=== PATIENT | female | born 1960 | race Hispanic/Latino ===

== ENCOUNTER 2019-05-30 11:08 | Inpatient (IN) | payer SELFPAY ==
[~2019-05-30] VITALS: Ht 154.9 cm; Wt 67.1 kg
[2019-05-30 11:58] LABS: BASOPHILS % (AUTO) 0.6 % (0.0-5.0); EOSINOPHILS % (AUTO) 4.9 % (0.0-8.0); LYMPHOCYTES % (AUTO) 26.6 % (21.0-51.0); MEAN CORPUSCULAR HEMOGLOBIN 30.7 pg (27.0-33.0); MEAN CORPUSCULAR HGB CONC 34.2 g/dL (32.0-36.0); MEAN CORPUSCULAR VOLUME 89.7 fL (79-99); MONOCYTES % (AUTO) 5.2 % (3.0-13.0); NEUTROPHILS % (AUTO) 62.7 % (40.0-77.0); NUCLEATED RED BLOOD CELLS 0.1 % (0.0-0.19); PLATELET COUNT (AUTO) 260 K/uL (130-400); RED BLOOD CELL COUNT(AUTO) 5.01 MIL/uL (4.00-5.50); RED CELL DISTRIBUTION WIDTH 13.2 % (11.0-15.5); WHITE BLOOD COUNT (AUTO) 7.3 K/uL (4.8-10.8)
[2019-05-30 12:12] LABS: CREATININE 0.9 mg/dL (0.5-1.5); POTASSIUM 3.9 mmol/L (3.5-5.1)
[2019-05-30] MEDS ORDERED: METOCLOPRAMIDE 10 MG/2 ML VIAL ONE (12:12)
[2019-05-30] MEDS ORDERED: DiphenhydrAMINE HCL 50 MG/ML VIAL ONE (12:13)
[2019-05-30] MEDS ORDERED: DEXAMETHASONE SOD PHOSPHATE 10MG/ML 1ML VIAL ONE (12:13)
[2019-05-30] MEDS ORDERED: KETOROLAC TROMETHAMINE 30MG/ML ONE (12:14)
[2019-05-30] MEDS ORDERED: SODIUM CHLORIDE 0.9% 1000ML 1,000 ML IV ONE (12:14)
[2019-05-30 12:24] LABS: ALBUMIN 3.5 g/dL (3.5-5.0); BILIRUBIN,TOTAL 0.4 mg/dL (0.2-1.0); MAGNESIUM 2.1 mg/dL (1.80-2.40); THYROID STIMULATING HORMONE 3.25 uIU/mL (0.36-3.74); TOTAL PROTEIN, SERUM 7.1 g/dL (6.0-8.3)
[2019-05-30 12:25] LABS: MAGNESIUM 2.1 mg/dL (1.80-2.40); THYROID STIMULATING HORMONE 3.32 uIU/mL (0.36-3.74)
[2019-05-30] MEDS ORDERED: ONDANSETRON HCL 4 MG/2 ML VIAL IVP PRN (17:45)
[2019-05-30] MEDS ORDERED: ACETAMINOPHEN 325 MG TAB PO PRN (17:45)
[2019-05-30] MEDS ORDERED: KETOROLAC TROMETHAMINE 15MG/ML IV PRN (19:45)
[2019-05-30] MEDS ORDERED: DEXAMETHASONE SOD PHOSPHATE 4 MG/ML 1ML VIAL ONE (20:42)
[2019-05-30] MEDS ORDERED: KETOROLAC TROMETHAMINE 15MG/ML ONE (20:42)
[2019-05-30 22:30] LABS: CREATINE KINASE, TOTAL 56 U/L (21-232); MYOGLOBIN 41 ng/mL (10-92); TROPONIN I < 0.04 ng/mL (0.00-0.06)
[2019-05-31 01:45] LABS: CREATINE KINASE, TOTAL 53 U/L (21-232); MYOGLOBIN 36 ng/mL (10-92); TROPONIN I < 0.04 ng/mL (0.00-0.06)
[2019-05-31] MEDS ORDERED: KETOROLAC TROMETHAMINE 30MG/ML ONE (04:24)
[2019-05-31] MEDS ORDERED: DEXAMETHASONE SOD PHOSPHATE 4 MG/ML 1ML VIAL ONE (08:07)
[2019-05-31 09:00] LABS: CREATINE KINASE, TOTAL 54 U/L (21-232); MYOGLOBIN 37 ng/mL (10-92); TROPONIN I < 0.04 ng/mL (0.00-0.06)
[2019-05-31] MEDS: ASPIRIN 325MG EC TAB 325 MG TABLET.DR PO SCH (09:00)
[2019-05-31] MEDS: DEXAMETHASONE SOD PHOSPHATE 4 MG/ML 1ML VIAL IVP SCH ×3 (09:00→21:25)
[2019-05-31] MEDS: CHLORIDE IV SCH ×2 (09:15→22:33)
[2019-05-31] MEDS ORDERED: COMPOUND IV MISC 1 EACH IVSOLN MISC PRN (09:15)
[2019-05-31] MEDS: SODIUM IV SCH ×2 (09:15→22:33)
[2019-05-31] MEDS: VALPROIC ACID IV SCH ×2 (09:15→22:33)
[2019-05-31] MEDS ORDERED: ASPIRIN 325MG EC TAB 325 MG TABLET.DR PO ONE (10:23)
[2019-05-31] MEDS ORDERED: BUTALB/ACETAMINOPHEN/CAFFEINE 1 EACH TABLET PO ONE (10:23)
[2019-05-31 10:46] VITALS: BP 107/69
[2019-05-31] MEDS ORDERED: LEVO100T12 PO (10:56)
[2019-05-31] MEDS ORDERED: TRAM100C3 PO (10:57)
[2019-05-31] MEDS: BUTALB/ACETAMINOPHEN/CAFFEINE 1 EACH TABLET PO PRN ×2 (11:58→20:01)
[2019-05-31 12:00] VITALS: BP 116/72
--- NOTE | 2019-05-31 12:40 | NUR ---
HOSPITALIST DELGADO JAMES, MATTHEW AT BEDSIDE TO ASSESS PATIENT AND DISCUSS POC WITH PATIENT. NEW ORDERS RECEIVED AND WILL BE CARRIED OUT.
[2019-05-31] MEDS: MORPHINE SULFATE 2 MG/ML 1ML SYG IVP PRN (14:01)
[2019-05-31 14:49] LABS: CREATINE KINASE, TOTAL 54 U/L (21-232); MYOGLOBIN 32 ng/mL (10-92); TROPONIN I < 0.04 ng/mL (0.00-0.06)
--- NOTE | 2019-05-31 15:05 | NUR ---
HOSPITALIST CALLED HOSPITALIST CALLED TO DISCUSS ECG RESULTS AND LAB RESULTS. CEDRICK JAMES NP STATED SHE'D BE BY TO ASSESS PATIENT.
--- NOTE | 2019-05-31 16:15 | NUR ---
CARDIOLOGY CONSULT NOTIFIED ERNESTO RINCON WITH [facility] REGARDING CONSULT ORDERED. INFORMED OF EKG RESULTS AND CARDIAC ENZYMES. NO NEW ORDERS RECEIVED AT THIS TIME. STATED WILL BE BY TO SEE PATIENT.
[2019-05-31 16:29] VITALS: BP 113/72
--- NOTE | 2019-05-31 17:15 | NUR ---
GRINDING AND SPRAYING SUPERVISOR CONSULT DR. PRESCOTT AT BEDSIDE TO ASSESS PATIENT AND DISCUSS POC. LABS AND ECG REVIEWED. PATIENT CLEARED FROM CARDIOLOGY.
--- NOTE | 2019-05-31 17:45 | NUR ---
CASSIE DORSEY NP MADE AWARE OF DR. PRESCOTT ROUNDING ON PT. NO NEW ORDERS RECEIVED AT THIS TIME.
[2019-05-31 19:47] VITALS: BP 95/53
--- NOTE | 2019-05-31 20:00 | NUR ---
Patient received: Patient lying in bed when received, she claimed, " The medication they give me through the IV is not working I still have a headache a score of 7. Can I get another pain medication cause my head hurts so badly like a 7." Patient given reassurance that I can give her medication for pain. See EMAR medication given.
[2019-05-31 22:57] LABS: CREATINE KINASE, TOTAL 42 U/L (21-232); MYOGLOBIN 31 ng/mL (10-92); TROPONIN I < 0.04 ng/mL (0.00-0.06)
[2019-05-31 23:47] VITALS: BP 108/64
[2019-06-01 03:51] VITALS: BP 114/77
[2019-06-01 04:37] LABS: BASOPHILS % (AUTO) 0.1 % (0.0-5.0); HEMATOCRIT 38.7 % (36-48); LYMPHOCYTES % (AUTO) 5.9 % (21.0-51.0); MEAN CORPUSCULAR HEMOGLOBIN 30.6 pg (27.0-33.0); MEAN CORPUSCULAR HGB CONC 34.4 g/dL (32.0-36.0); MEAN CORPUSCULAR VOLUME 89.1 fL (79-99); MONOCYTES % (AUTO) 1.3 % (3.0-13.0); NEUTROPHILS % (AUTO) 92.7 % (40.0-77.0); PLATELET COUNT (AUTO) 272 K/uL (130-400); RED BLOOD CELL COUNT(AUTO) 4.34 MIL/uL (4.00-5.50); RED CELL DISTRIBUTION WIDTH 13.2 % (11.0-15.5)
[2019-06-01] MEDS: MORPHINE SULFATE 2 MG/ML 1ML SYG IVP PRN ×2 (05:27→16:24)
[2019-06-01 07:32] VITALS: BP 104/63
[2019-06-01] MEDS: CHLORIDE IV SCH (09:17)
[2019-06-01] MEDS: SODIUM IV SCH (09:17)
[2019-06-01] MEDS: VALPROIC ACID IV SCH (09:17)
[2019-06-01] MEDS: DEXAMETHASONE SOD PHOSPHATE 4 MG/ML 1ML VIAL IVP SCH ×2 (09:17→16:09)
[2019-06-01] MEDS: ASPIRIN 325MG EC TAB 325 MG TABLET.DR PO SCH (09:17)
--- NOTE | 2019-06-01 09:50 | NUR ---
NEUROLOGIST ROUNDING DR. SOTO AT BEDSIDE TO ASSESS PATIENT. NEW ORDERS RECEIVED AND WILL BE CARRIED OUT. PATIENT INSTRUCTED TO FOLLOW UP IN 6-8 WEEKS AT NEUROLOGY CLINIC IF PATIENT WISHES TO DO SO.
[2019-06-01 11:58] VITALS: BP 120/74
[2019-06-01 16:14] VITALS: BP 100/66
--- NOTE | 2019-06-01 17:25 | NUR ---
CASSIE DORSEY NP INFORMED THAT PT IS PENDING TO HAVE HOSPITALIST ROUND ON HER. STATED CEDRICK JAMES NP WOULD BE BY THIS EVENING TO SEE PT.
[2019-06-01 19:30] VITALS: BP 103/71
--- NOTE | 2019-06-01 19:39 | NUR ---
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
[2019-06-01] MEDS ORDERED: DIVALPROEX SODIUM 250 MG TABLET.DR PO SCH (21:00)
[2019-06-02] MEDS ORDERED: DEXAMETHASONE SOD PHOSPHATE 4 MG/ML 1ML VIAL IVP SCH (09:00)
== END 2019-06-01 19:45 | disposition home or self-care (01) | DRG 123 ==
LOC: EDH 11:08 → OBSVTOIN 17:34 → EDHIP 17:34 → WSH 05-31 10:45
PROVIDERS: ADMIT Internal Medicine; ATTEND Internal Medicine
DX: G45.3 Amaurosis fugax (principal); R07.9 Chest pain, unspecified; E03.9 Hypothyroidism, unspecified; F41.9 Anxiety disorder, unspecified; Z90.710 Acquired absence of both cervix and uterus; Z87.891 Personal history of nicotine dependence
CPT/HCPCS: 36415; 70450; 70544; 70551; 80048; 80053; 82550; 83735; 83874; 84443; 84484; 85025; 93005; 93880; G0378; J1100; J1200; J1885; J2765; J7030

== ENCOUNTER 2019-10-17 17:19 | Emergency (ER) | payer OTHER ==
[~2019-10-17 17:19] MED LIST: LEVO100T12 PO; TRAM100C3 PO
[2019-10-17] MEDS ORDERED: ONDANSETRON HCL 4 MG/2 ML VIAL ONE (17:53)
[2019-10-17] MEDS ORDERED: SODIUM CHLORIDE 0.9% 1000ML 1,000 ML IV ONE (17:53)
[2019-10-17 18:02] LABS: BASOPHILS % (AUTO) 0.3 % (0.0-5.0); EOSINOPHILS % (AUTO) 0.2 % (0.0-8.0); HEMATOCRIT 45.8 % (36-48); LYMPHOCYTES % (AUTO) 3.8 % (21.0-51.0); MEAN CORPUSCULAR HEMOGLOBIN 29.4 pg (27.0-33.0); MEAN CORPUSCULAR HGB CONC 33.8 g/dL (32.0-36.0); MEAN CORPUSCULAR VOLUME 86.7 fL (79-99); MONOCYTES % (AUTO) 4.3 % (3.0-13.0); PLATELET COUNT (AUTO) 285 K/uL (130-400); RED BLOOD CELL COUNT(AUTO) 5.28 MIL/uL (4.00-5.50); RED CELL DISTRIBUTION WIDTH 12.2 % (11.0-15.5); WHITE BLOOD COUNT (AUTO) 19.1 K/uL (4.8-10.8)
[2019-10-17 18:27] LABS: CREATININE 1.3 mg/dL (0.5-1.5); POTASSIUM 3.6 mmol/L (3.5-5.1)
[2019-10-17 18:33] LABS: ALBUMIN 4.3 g/dL (3.5-5.0); BILIRUBIN,TOTAL 0.4 mg/dL (0.2-1.0); MAGNESIUM 2.1 mg/dL (1.80-2.40); TOTAL PROTEIN, SERUM 8.5 g/dL (6.0-8.3)
[2019-10-17] MEDS ORDERED: ACETAMINOPHEN EXTRA STRENGTH 500 MG TABLET ONE (19:28)
[2019-10-17 19:30] LABS: APPEARANCE,URINE Clear (CLEAR); BILIRUBIN,URINE Negative (NEGATIVE); COLOR,URINE Yellow (YELLOW); GLUCOSE, URINE (UA) Negative (NEGATIVE); KETONES,URINE 15 mg/dL (NEGATIVE); LEUKOCYTE ESTERASE ,URINE Negative (NEGATIVE); NITRATE,URINE Negative (NEGATIVE); OCCULT BLOOD,URINE Nonhemolyzed Trace (NEGATIVE); PROTEIN,URINE POS 1+ mg/dL (NEGATIVE)
[2019-10-17 19:40] LABS: BACTERIA,URINE Few /HPF (None Seen); MUCUS,URINE Many LPF (None Seen); SQUAMOUS EPITHELIAL CELL,UR 0-2 /HPF (0-2); WBC,URINE 0-1 /HPF (0-1)
== END 2019-10-17 19:53 | disposition home or self-care (01) ==
LOC: EDH 17:19
DX: T63.441A Toxic effect of venom of bees, accidental (unintentional), initial encounter (principal); R11.2 Nausea with vomiting, unspecified; Y92.098 Other place in other non-institutional residence as the place of occurrence of the external cause
CPT/HCPCS: 36415; 80053; 81001; 82550; 83735; 85025; 96361; 96374; 99283; J2405; J7030

== ENCOUNTER 2020-02-03 11:58 | Emergency (ER) | payer OTHER, SELFPAY ==
[2020-02-03 13:48] LABS: BASOPHILS % (AUTO) 0.9 % (0.0-5.0); EOSINOPHILS % (AUTO) 1.7 % (0.0-8.0); HEMATOCRIT 40.6 % (36-48); LYMPHOCYTES % (AUTO) 16.2 % (21.0-51.0); MEAN CORPUSCULAR HEMOGLOBIN 30.2 pg (27.0-33.0); MEAN CORPUSCULAR HGB CONC 34.2 g/dL (32.0-36.0); MEAN CORPUSCULAR VOLUME 88.1 fL (79-99); MONOCYTES % (AUTO) 11.3 % (3.0-13.0); NEUTROPHILS % (AUTO) 69.6 % (40.0-77.0); PLATELET COUNT (AUTO) 234 K/uL (130-400); RED BLOOD CELL COUNT(AUTO) 4.61 MIL/uL (4.00-5.50); RED CELL DISTRIBUTION WIDTH 12.7 % (11.0-15.5); WHITE BLOOD COUNT (AUTO) 5.8 K/uL (4.8-10.8)
[2020-02-03 13:56] LABS: APPEARANCE,URINE Clear (CLEAR); BILIRUBIN,URINE Negative (NEGATIVE); COLOR,URINE Yellow (YELLOW); GLUCOSE, URINE (UA) Negative (NEGATIVE); KETONES,URINE Trace mg/dL (NEGATIVE); LEUKOCYTE ESTERASE ,URINE Negative (NEGATIVE); NITRATE,URINE Negative (NEGATIVE); OCCULT BLOOD,URINE Small (NEGATIVE); PROTEIN,URINE Negative (NEGATIVE)
[2020-02-03 13:59] LABS: CREATININE 0.8 mg/dL (0.5-1.5); POTASSIUM 3.8 mmol/L (3.5-5.1)
[2020-02-03 14:04] LABS: BILIRUBIN,TOTAL 0.4 mg/dL (0.2-1.0); TOTAL PROTEIN, SERUM 7.7 g/dL (6.0-8.3)
[2020-02-03 14:23] LABS: WBC,URINE None Seen /HPF (0-1)
[2020-02-03 14:24] LABS: BACTERIA,URINE Few /HPF (None Seen)
== END 2020-02-03 14:52 | disposition home or self-care (01) ==
LOC: EDH 11:58
DX: R50.9 Fever, unspecified (principal); R51 Headache; M79.10 Myalgia, unspecified site; M25.50 Pain in unspecified joint; Z20.828 Contact with and (suspected) exposure to other viral communicable diseases
CPT/HCPCS: 36415; 71045; 80053; 81001; 85025; 99284; U0003

== ENCOUNTER 2020-12-04 14:13 | Emergency (ER) | payer OTHER | END 2020-12-04 16:01 | disposition home or self-care (01) | LOC: EDH 14:13 | DX: M79.10 Myalgia, unspecified site (principal); R53.1 Weakness; Z98.51 Tubal ligation status | CPT/HCPCS: 99281 ==

== ENCOUNTER 2021-02-08 13:22 | Emergency (ER) | payer SELFPAY ==
[~2021-02-08] VITALS: Ht 154.9 cm; Wt 65.8 kg
[2021-02-08] MEDS ORDERED: KETOROLAC 60 MG VIAL (30MG/ML) IM ONE (14:00)
[2021-02-08] MEDS ORDERED: CYCLOBENZAPRINE HCL 10 MG TABLET PO ONE (14:00)
[2021-02-08] MEDS ORDERED: GABA-533 PO (14:40)
[2021-02-08 14:51] VITALS: BP 135/79
== END 2021-02-08 15:19 | disposition home or self-care (01) ==
LOC: EDH 13:22
DX: M25.50 Pain in unspecified joint (principal); K08.89 Other specified disorders of teeth and supporting structures; E03.9 Hypothyroidism, unspecified; Z79.899 Other long term (current) drug therapy
CPT/HCPCS: 87880; 96372; 99283; J1885

== ENCOUNTER 2022-10-01 17:56 | Emergency (ER) | payer BC ==
[~2022-10-01] VITALS: Ht 154.9 cm; Wt 71.7 kg
[~2022-10-01 17:56] MED LIST changes: +GABA-533 PO
[2022-10-01] MEDS ORDERED: ACETAMINOPHEN 500 MG TABLET ONE (18:53)
[2022-10-01] MEDS ORDERED: ACETAMINOPHEN 500 MG TABLET PO ONE (19:00)
[2022-10-01 20:00] LABS: APPEARANCE,URINE CLEAR (CLEAR); BILIRUBIN,URINE NEGATIVE (NEGATIVE); COLOR,URINE LIGHT-YELLOW (YELLOW); GLUCOSE, URINE (UA) NEGATIVE (NEGATIVE); KETONES,URINE NEGATIVE (NEGATIVE); LEUKOCYTE ESTERASE ,URINE NEGATIVE Leu/uL (NEGATIVE); NITRATE,URINE NEGATIVE (NEGATIVE); OCCULT BLOOD,URINE SMALL (NEGATIVE); PROTEIN,URINE NEGATIVE (NEGATIVE); UROBILINOGEN,URINE 0.2 mg/dL (0.2-1.0)
[2022-10-01 20:02] LABS: MUCUS,URINE RARE LPF (None Seen); WBC,URINE 0-1 /HPF (0-1); YEAST,URINE BUDDING RARE /HPF (None Seen)
[2022-10-01 20:40] LABS: BASOPHILS % (AUTO) 0.4 % (0.0-5.0); EOSINOPHILS % (AUTO) 0.2 % (0.0-8.0); HEMATOCRIT 40.7 % (36-48); LYMPHOCYTES % (AUTO) 5.3 % (21.0-51.0); MEAN CORPUSCULAR HEMOGLOBIN 29.5 pg (27.0-33.0); MEAN CORPUSCULAR HGB CONC 33.7 g/dL (32.0-36.0); MEAN CORPUSCULAR VOLUME 87.7 fL (79-99); MONOCYTES % (AUTO) 5.3 % (3.0-13.0); NEUTROPHILS % (AUTO) 88.5 % (40.0-77.0); PLATELET COUNT (AUTO) 246 K/uL (130-400); RED BLOOD CELL COUNT(AUTO) 4.64 MIL/uL (4.00-5.50); RED CELL DISTRIBUTION WIDTH 12.5 % (11.0-15.5)
[2022-10-01] MEDS ORDERED: PROCHLORPERAZINE 10MG/2ML INJ IV ONE (21:00)
[2022-10-01] MEDS ORDERED: 0.9%NACL 1000ML 1,000 ML IV ONE (21:00)
[2022-10-01] MEDS ORDERED: DiphenhydrAMINE HCL 50 MG/ML VIAL IV ONE (21:00)
[2022-10-01 21:08] LABS: CREATININE 1.1 mg/dL (0.5-1.5); POTASSIUM 3.8 mmol/L (3.5-5.1)
[2022-10-01 21:13] LABS: ALBUMIN 3.8 g/dL (3.5-5.0); TOTAL PROTEIN, SERUM 7.1 g/dL (6.0-8.3)
[2022-10-01] MEDS ORDERED: CYCL10TA16 PO (22:06)
[2022-10-01 22:25] VITALS: BP 138/76
== END 2022-10-01 22:27 | disposition home or self-care (01) ==
LOC: EDH 17:56
DX: G43.509 Persistent migraine aura without cerebral infarction, not intractable, without status migrainosus (principal); Z79.899 Other long term (current) drug therapy; Z20.822 Contact with and (suspected) exposure to COVID-19
CPT/HCPCS: 99284; 96374; 87635; 96361; 96375; 80053; 85025; 87880; 87804 ×2; 81001; 36415; C9803; J1200; J7030; J0780